=== PATIENT | male | born 1950 | race Caucasian/White ===

== ENCOUNTER 2018-03-30 04:52 | Observation (INO) ==
--- NOTE | 2018-03-30 05:28 | Emergency Department Note ---
Disposition Clinical Impression: Weakness of right side of body Disposition: Admitted As Inpatient Condition: Good Time of Disposition: 06:05 Neuro HPI - General Chief Complaint: ED Neuro Symptoms/Deficit Stated Complaint: numbness to left side of the face at 0100 Time Seen by Provider: 03/30/18 05:09 Source: patient, family Limitations: no limitations Nursing Notes Reviewed: Yes Vital Signs Reviewed: Yes - History of Present Illness HPI Narrative: 67-year-old male history of hypertension, atrial fibrillation on Xarelto, diabetes presents an emergency department for right sided weakness left facial numbness. States around 4 hours prior to arrival at 0100 while at work patient experience a weird feeling in his left side of the face that started around the front and radiated up to the back of his scalp. He also had associated weakness in his right arm and right leg. No slurred speech. States he was unable to move however he was standing. His coworkers asked it feels are right in noted that he will had an abnormal gait. He checked his blood pressure stated it was elevated systolic 190. The symptoms lasted for roughly an hour. Currently his symptoms have completely resolved. He denies prior history of similar symptoms. Denies any injury or trauma. He denies any headache, chest pain or shortness of breath. He denies any G.I. bleed symptoms. Denies any recent travel, diarrhea or recent tick exposure. His glucose was 154 on arrival here. Onset of Symptoms Date: 03/30/18 Onset of Symptoms Time: 01:00 Symptom Onset Unknown: No - Related Data Home Medications: Home Medications Medication Instructions Recorded Confirmed Amlodipine Besylate 10 mg PO DAILY 03/30/18 03/30/18 Canagliflozin [Invokana] 300 mg PO DAILY 03/30/18 03/30/18 Clotrimazole 1% CRM [Lotrimin 1%] 1 appl TP BID 03/30/18 03/30/18 Finasteride [Proscar] 5 mg PO DAILY 03/30/18 03/30/18 Fluorouracil [Carac] 30 gm TP BID 03/30/18 03/30/18 Glimepiride [Amaryl] 4 mg PO DAILY 03/30/18 03/30/18 Losartan Potassium [Cozaar] 100 mg PO DAILY 03/30/18 03/30/18 Meclizine HCl [Verticalm] 25 mg PO DAILY 03/30/18 03/30/18 Metformin HCl [Glucophage] 1,000 mg PO BID 03/30/18 03/30/18 Metoprolol Tartrate [Lopressor] 50 mg PO BID 03/30/18 03/30/18 Mupirocin [Bactroban Oint] 1 appl TP TID 03/30/18 03/30/18 Niacin (24 HR) [Niaspan] 500 mg PO HS 03/30/18 03/30/18 Potassium Chloride [Klor-Con 10] 10 meq PO BID 03/30/18 03/30/18 Rivaroxaban [Xarelto] 20 mg PO DAILY 03/30/18 03/30/18 Allergies/Adverse Reactions: Allergies Allergy/AdvReac Type Severity Reaction Status Date / Time Tzerctw-Jls-Bah Reductase Allergy Cough Verified 04/21/15 10:41 Inhibitor [Statins] All systems ED: reviewed and negative except as stated. Review of Systems: As Per HPI Constitutional: Reports: weakness. Denies: fever, chills Cardiovascular: Denies: chest pain Respiratory: Denies: dyspnea Musculoskeletal: Denies: back pain, neck pain Neurological: Reports: weakness, numbness, abnormal gait. Denies: headache, paresthesias, confusion Past Medical History - Past Medical History Attestation: Yes The following information was validated with the patient. Source: patient Medical history: Reports: atrial fibrillation, diabetes, hyperlipidemia, hypertension Surgical history: Reports: other Psychiatric history: Reports: no psych history - Social History Smoking Status: Former smoker Alcohol use: Reports: none Drug use: Reports: none Physical Exam - General Limitations: no limitations General appearance: alert, in no apparent distress - Head Head exam: atraumatic, normocephalic, normal inspection - Eye Eye exam: Present: normal appearance, PERRL, EOMI - ENT ENT exam: normal exam, normal oropharynx, mucous membranes moist - Neck Neck exam: Present: normal inspection, full ROM, trachea midline - Chest Chest inspection: Present: normal inspection, symmetric chest wall rise - Respiratory Respiratory exam: Present: normal lung sounds bilaterally - Cardiovascular Cardiovascular exam: Present: regular rate, normal rhythm, normal heart sounds - Abdominal Exam Abdominal exam: Present: soft, Non-Tender. Absent: tenderness, distention, guarding, rebound, rigidity - Extremities Exam Extremities exam: Present: normal inspection, full ROM, normal capillary refill. Absent: tenderness, pedal edema, calf tenderness - Neurological Exam Neurological exam: Present: alert, oriented X3, CN II-XII intact, normal gait - Expanded Neurological Exam Patient oriented to: Present: person, place, time Speech: Present: fluid speech Cranial nerves: EOM function (II, III, IV, ): Normal, facial sensation (V): Normal, facial palsy (VII): Normal, gag reflex (IX): Normal, spinal accessory function (XI): Normal, tongue deviation (XII): Normal Cerebellar function: finger to nose: Normal, heel to quintana: Normal Cerebellar function: normal gait Motor strength - LUE: 5/5 Motor strength - RUE: 5/5 Motor strength - LLE: 5/5 Motor strength - RLE: 5/5 Upper motor neuron exam: dwaine neglect: Absent bilaterally, pronator drift: Absent bilaterally Sensory exam upper extremity: light touch: Normal Sensory exam lower extremity: light touch: Normal Coma Scale Eye Opening: Spontaneous Coma Scale Motor Response: Obeys Commands Coma Scale Verbal Response: Oriented Coma Scale Total: 15 - Psychiatric Psychiatric exam: Present: normal affect, normal mood - Skin Skin exam: Present: warm, dry, intact, normal color. Absent: rash, cyanosis, diaphoresis Course Course Narrative: Patient presents with resolved right-sided weakness of upper and lower extremity. His current NIH score of 0. He takes Xarelto for his atrial fibrillation. He is currently not an appropriate TPA candidate. Given his risk factors he would be appropriate for further evaluation for possible CVA TIA including a MRI is a do not suspect this is hemorrhagic stroke given lack of headache and resolved symptoms. - Consultations Consultation #1: Spoke with on-call hospitalist castro Hugo to admit for right sided weakness resolved and CVA/TIA workup. MRI is pending and should not delay admission. Requests for the MRI to be performed in the ED prior to admission to the floor. Time: 06:05 Vital Signs Temperature 98.4 F 03/30/18 05:00 Pulse Rate 81 03/30/18 05:00 Respiratory Rate 16 03/30/18 05:00 Blood Pressure 163/110 03/30/18 05:00 O2 Sat by Pulse Oximetry 98 03/30/18 05:00 Temperature 98.4 F 03/30/18 05:00 Pulse Rate 68 03/30/18 06:44 Respiratory Rate 16 03/30/18 06:44 Blood Pressure 164/119 03/30/18 06:44 O2 Sat by Pulse Oximetry 97 03/30/18 06:44 Oxygen Delivery Oxygen Delivery Room Air Neuro Symptoms/Deficit - MDM Narrative Medical decision making narrative: Patient was discussed with my attending physician who agrees with ED management and final disposition. They independently evaluated the patient. Please refer to their attestation to this encounter for additional information. This note was generated by [employer] voice recognition software and as a result grammatical or spelling errors may occur using this program. - Medical Records Medical records reviewed: Yes I reviewed the patient's medical records. - Lab Data Result diagrams: 03/30/18 05:35 03/30/18 05:35 Lab Results 03/30/18 03/30/18 03/30/18 Range/Units 04:59 05:35 05:35 WBC 6.2 (4.3-11.1) K/mcL RBC 4.79 (4.19-5.50) M/mcL Hgb 14.4 (12.9-16.9) g/dL Hct 42.1 (37.5-50.1) % MCV 87.9 (83.0-100.0) fL MCH 30.1 (28.0-33.3) pg MCHC 34.2 (31.6-35.5) g/dL RDW 13.2 (11.5-14.5) % Plt Count 229 (140-400) K/mcL MPV 9.9 (9.4-12.4) fL Immature Gran % 0.3 (0-4) % Seg Neutrophils % 58.2 % Lymphocytes % 28.7 % Monocytes % 8.9 % Eosinophils % 2.9 % Basophils % 1.0 % Neutrophils # 3.6 (1.6-8.9) K/mcL Lymphocytes # 1.8 (0.6-4.6) K/mcL Monocytes # 0.6 (0.0-1.3) K/mcL Eosinophils # 0.2 (0.0-0.6) K/mcL Basophils # 0.1 (0.0-0.2) K/mcL PT 13.0 H (9.4-12.1) Seconds INR 1.2 APTT 32.4 (26.0-36.0) Seconds Sodium (136-145) mEq/L Potassium (3.5-5.1) mEq/L Chloride (98-107) mEq/L Carbon Dioxide (23-29) mEq/L BUN (8-23) mg/dL Creatinine (0.70-1.30) mg/dL Est GFR ( Amer) (> 60) Est GFR (Non-Af Amer) (> 60) BUN/Creatinine Ratio (6-26) Glucose (70-105) mg/dL POC Glucose 154 H (70-99) mg/dL Calculated Osmolality (280-300) Calcium (8.6-10.3) mg/dL Troponin I (< 0.04) ng/mL 03/30/18 Range/Units 05:35 WBC (4.3-11.1) K/mcL RBC (4.19-5.50) M/mcL Hgb (12.9-16.9) g/dL Hct (37.5-50.1) % MCV (83.0-100.0) fL MCH (28.0-33.3) pg MCHC (31.6-35.5) g/dL RDW (11.5-14.5) % Plt Count (140-400) K/mcL MPV (9.4-12.4) fL Immature Gran % (0-4) % Seg Neutrophils % % Lymphocytes % % Monocytes % % Eosinophils % % Basophils % % Neutrophils # (1.6-8.9) K/mcL Lymphocytes # (0.6-4.6) K/mcL Monocytes # (0.0-1.3) K/mcL Eosinophils # (0.0-0.6) K/mcL Basophils # (0.0-0.2) K/mcL PT (9.4-12.1) Seconds INR APTT (26.0-36.0) Seconds Sodium 140 (136-145) mEq/L Potassium 3.4 L (3.5-5.1) mEq/L Chloride 101 (98-107) mEq/L Carbon Dioxide 23 (23-29) mEq/L BUN 20 (8-23) mg/dL Creatinine 0.94 (0.70-1.30) mg/dL Est GFR ( Amer) > 60 (> 60) Est GFR (Non-Af Amer) > 60 (> 60) BUN/Creatinine Ratio 21 (6-26) Glucose 153 H (70-105) mg/dL POC Glucose (70-99) mg/dL Calculated Osmolality 296 (280-300) Calcium 9.6 (8.6-10.3) mg/dL Troponin I < 0.03 (< 0.04) ng/mL - EKG Data EKG attestation: Yes I reviewed and interpreted this EKG. EKG results narrative: EKG performed 06 atrial fibrillation 58 beats per minute, normal axis, good R wave progression, no ST elevation or depression, QT QTC slightly prolonged 441 438. Compared to prior EKG performed to 62,001 showed sinus bradycardia NIH Stroke Scale - Level of Consciousness LOC: Alert - LOC Questions LOC Questions: Answers both correctly - LOC Commands LOC Commands: Performs both correctly - Best Gaze Best Gaze: Normal - Visual Visual: No visual loss - Facial Palsy Facial Palsy: Normal - Motor Arms Motor Arm-Left: No drift for 10 seconds Motor Arm-Right: No drift for 10 seconds - Motor Legs Motor Leg-Left: No drift for 5 seconds Motor Leg-Right: No drift for 5 seconds - Limb Ataxia Limb Ataxia: Absent of affected limb too weak to perform exam - Sensory Sensory: Normal - Best Language Best Language: No aphasia - Dysarthria Dysarthria: Normal - Extinction and Inattention Extinction and Inattention: Normal - NIHSS Total Score NIHSS Total Score: 0 TPA Checklist - Eligibilty for IV tPA 1. LKW equal to or less than 4.5 hours be before treatment: Yes 2. Clinical diagnosis of ischemic stroke causing deficit: Yes 3. Age 18 years or older: Yes - Contraindications 15. Current or recent use of anticoagualants (see protocol): Yes - LKW: 3-4.5 hrs Add. Warnings/Precautions Patient/family understanding: The patient/family members have been counseled and understood the risk, benefit , and alternatives of treatment.
[2018-03-30 05:49] LABS: Basophils # 0.1 K/mcL (0.0-0.2); Eosinophils # 0.2 K/mcL (0.0-0.6); Eosinophils % 2.9 %; Hematocrit 42.1 % (37.5-50.1); Hemoglobin 14.4 g/dL (12.9-16.9); Immature Granulocytes % 0.3 % (0-4); Lymphocytes # 1.8 K/mcL (0.6-4.6); Lymphocytes % 28.7 %; Mean Corpuscular HGB Conc 34.2 g/dL (31.6-35.5); Mean Corpuscular Hemoglobin 30.1 pg (28.0-33.3); Mean Corpuscular Volume 87.9 fL (83.0-100.0); Mean Platelet Volume 9.9 fL (9.4-12.4); Monocytes # 0.6 K/mcL (0.0-1.3); Monocytes % 8.9 %; Neutrophils # 3.6 K/mcL (1.6-8.9); Platelet Count 229 K/mcL (140-400); Red Blood Count 4.79 M/mcL (4.19-5.50); Red Cell Distribution Width 13.2 % (11.5-14.5); Segmented Neutrophils % 58.2 %
[2018-03-30 05:56] LABS: INR 1.2
[2018-03-30 05:58] LABS: Activated Partial Thrombo Time 32.4 Seconds (26.0-36.0)
[2018-03-30 06:19] LABS: BUN/Creatinine Ratio 21 (6-26); Blood Urea Nitrogen 20 mg/dL (8-23); Calcium 9.6 mg/dL (8.6-10.3); Carbon Dioxide 23 mEq/L (23-29); Chloride 101 mEq/L (98-107); Glucose 153 mg/dL (70-105); Osmolality,Calculated 296 (280-300); Potassium 3.4 mEq/L (3.5-5.1); Sodium 140 mEq/L (136-145); eGFR For Non-African Americans > 60 (> 60)
[2018-03-30 06:20] LABS: Troponin I < 0.03 ng/mL (< 0.04)
[2018-03-30] MEDS ORDERED: Naloxone 0.4 MG/ML INJ IVP PRN (08:31)
--- NOTE | 2018-03-30 08:37 | Internal Med History&Physical ---
Date of Encounter: 03/30/18 Time of Encounter: 09:00 Internal Medicine - H&P: HPI Chief complaint: Incoordination of Right side of body / Burning sensation on left half of fa Admitted From: Home Plans for Post Hospital Care: Home History of present illness: Mr. Yo is a 67 year old male w PMH of Afib on AC ( Xarelto) . HTN, HLD, Dm who presented w cc of temporary right UE/LE incoordination and left facial burning sensation which started at work yesterday evening and resolved over a period of 2 hours . By the time he was brought to the ER, his symptoms have completely disappeared. He states that he also checked his blood pressure at the time of these symptoms and it was elevated to the 190s systolic. He is on 3 different blood pressure medications and usually his blood pressure runs in the 140s. He has been placed on observation for further evaluation. The patient was in on the floor he does not have any current neurological symptoms whatsoever. He denies any headaches, tingling or numbness in any part of his body, blurring of vision, chest pain, shortness of breath Past Med Surg Social Fam HX - Past Medical History Medical history: atrial fibrillation, diabetes, hyperlipidemia, hypertension Psychiatric history: no psych history - Past Surgical History Surgical History: other Additional surgical history: circumcision - Social History Smoking Status: Former smoker Alcohol use: none Drug use: none - Additional Family History Additional family history: No significant family history of early CVA Internal Medicine - H&P: Meds Amlodipine Besylate 10 mg PO DAILY 03/30/18 [History] Canagliflozin [Invokana] 300 mg PO DAILY 03/30/18 [History] Clotrimazole 1% CRM [Lotrimin 1%] 1 appl TP BID 03/30/18 [History] Finasteride [Proscar] 5 mg PO DAILY 03/30/18 [History] Fluorouracil [Carac] 30 gm TP BID 03/30/18 [History] Glimepiride [Amaryl] 4 mg PO DAILY 03/30/18 [History] Losartan/Hydrochlorothiazide [Losartan-Hctz 100-25 mg Tab] 1 tab PO DAILY [History] Meclizine HCl [Verticalm] 25 mg PO DAILY 03/30/18 [History] Metformin HCl [Glucophage] 1,000 mg PO BID 03/30/18 [History] Metoprolol Tartrate [Lopressor] 50 mg PO BID 03/30/18 [History] Multivitamin [One Daily Multivitamin] 1 tab PO DAILY 03/30/18 [History] Mupirocin [Bactroban Oint] 1 appl TP TID 03/30/18 [History] Niacin (24 HR) [Niaspan] 500 mg PO HS 03/30/18 [History] Potassium Chloride [Klor-Con 10] 10 meq PO BID 03/30/18 [History] Rivaroxaban [Xarelto] 20 mg PO DAILY 03/30/18 [History] 3 Allergy/AdvReac Type Severity Reaction Status Date / Time Yvfjtug-Jwn-Hpo Reductase Allergy Cough Verified 04/21/15 10:41 Inhibitor [Statins] All Systems PM: A 10-system review of systems was performed and is negative for pertinent findings except as documented above in the HPI. - Constitutional Vitals: Temp Pulse Resp BP Pulse Ox 98.4 F 68 18 180/115 97 03/30/18 05:00 03/30/18 06:44 03/30/18 08:30 03/30/18 08:30 03/30/18 06:44 - Head Head exam: Present: atraumatic, normocephalic - Eye Eye exam: Present: PERRL, conjuntiva pink, sclera anicteric Pupils: Present: PERRL - Neck Neck exam general surgery: Present: supple, trachea midline. Absent: lymphadenopathy - Respiratory Respiratory exam: Present: CTAB. Absent: accessory muscle use, rales, rhonchi, wheezes - Cardiovascular Cardiovascular exam: Present: irregular rhythm. Absent: diastolic murmur, distant heart sounds, gallop, JVD, RRR, systolic murmur - GI/Abdominal GI/Abdominal exam: Present: normal bowel sounds, soft, no peritoneal signs. Absent: distended, tenderness - Extremities Exam Extremities exam: Present: warm, radial pulses palpable and symmetrical. Absent : calf tenderness, cyanotic, pedal edema - Neurological Exam Neurological exam: Present: alert, CN II-XII intact, normal gait, reflexes normal, strengths equal and symetr throughout. Absent: motor sensory deficit, no focal deficits Additional comments: No dysdiadochokinesia Finger-nose test normal Internal Med - H&P Results - Labs CBC & Chem 7: 03/30/18 05:35 03/30/18 05:35 - EKG Data -: EKG Interpreted by Myself (Atrial fibrillation rate controlled no ST elevation or depression) - Diagnostic Studies MRI - head Status: image reviewed by me (No acute strokes identified) - VTE Reasons for not Prescribing Prophylaxis: Not indicated-Anticoagulated or INR therapeutic - Assessment and plan (1) TIA (transient ischemic attack) Current Visit: Yes Status: Acute Assessment and plan: Symptoms suggestive of a TIA which is completely resolved at this point. Place on telemetry monitoring and frequent neuro checks. Patient is already anticoagulated will consider adding aspirin. Consult neurology. Check 2-D echo check carotid duplex Patient does has hyperlipidemia, hypertension as well as diabetes which are all risk factors for stroke but is already anticoagulated. Further input after Neurology evaluation Patient has an allergy to statins and is currently taking niacin which I will continue for hyperlipidemia (2) Diabetes mellitus type 2 with complications Current Visit: Yes Status: Acute Assessment and plan: Patient usually takes oral hypoglycemics at home. I will hold off all oral hypoglycemics. 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 Qualified Code(s): E11.8 - Type 2 diabetes mellitus with unspecified complications (3) Chronic a-fib Current Visit: Yes Status: Chronic Assessment and plan: Chronic atrial fibrillation, rate controlled, continue anticoagulation with xarelto Continue beta lesly (4) Essential (primary) hypertension Current Visit: Yes Status: Acute Assessment and plan: Continue beta lesly, losartan, hydrochlorothiazide and amlodipine Blood pressure is running a little bit high in the ER-consider escalating the dose of beta lesly providing heart rate allows (5) HLD (hyperlipidemia) Current Visit: Yes Status: Acute Assessment and plan: Continue niacin Qualifiers: Hyperlipidemia type: mixed hyperlipidemia Qualified Code(s): E78.2 - Mixed hyperlipidemia - Time Spent With Patient Total time spent is greater than 50% in coordination of care (as documented) at patient's floor/unit and/or counseling patient: Greater than 35 minutes
[2018-03-30] MEDS ORDERED: NON-FORMULARY MEDICATION 1 EACH EACH (Rivaroxaban [Xarelto] 20 MG) PO SCH (09:00)
[2018-03-30] MEDS: amLODIPine 5 MG TABLET PO SCH (10:02)
[2018-03-30] MEDS: Finasteride 5 MG TABLET PO SCH (10:02)
[2018-03-30] MEDS ORDERED: *HR* Dextrose 50 % in Water (Syg) 50 ML SYRINGE IVP PRN (10:04)
[2018-03-30] MEDS ORDERED: D5% in Water 1,000 ML IVC PRN (10:04)
[2018-03-30] MEDS ORDERED: Dextrose Gel 15 GM/37.5 ML TUBE PO PRN ×2 (10:04)
[2018-03-30] MEDS: Losartan/HCTZ 50-12.5 TABLET PO SCH (10:21)
--- NOTE | 2018-03-30 10:34 | Neurology - Consult Note ---
Date of Encounter: 03/30/18 Time of Encounter: 10:00 Assessment and Plan (1) TIA (transient ischemic attack) Current Visit: Yes Status: Acute Patient experienced left scalp paresthesias and burning as well as right upper and lower extremity weakness and impaired coordination in the setting of Hypertension measured by patient at >190/100. MRI finds chronic white matter ischemic changes with no acute abnormality or stroke identified. Examination today does not find any focal deficit. Echocardiogram and carotid doppler studies are pending. The constellation of symptoms do not localize to ischemia of any one neurologic area. This is more consistent with vasospatic ischemia as result of his hypertension. At this time I recommend that patient continue on Xarelto alone without additional antiplatelet therapy. After echocardiogram and carotid studies no further imaging is necessary from neurology stand point. Recommend blood pressure management by primary team as well as close outpatient blood pressure follow up and treatment. Patient is on several antihypertensives already, treatment resistant hypertension in the setting of obesity may indicate sleep apnea, also recommend consideration for the need of a sleep study for obstructive sleep apnea. History of Present Illness HPI: Mr. Yo is a 67 year old male with a history of hypertension, hyperlipidemia diabetes, and atrial fibrillation treated with xarelto. Patient denies previous occurrence of TIA, CVA, or similar symptoms, he does not take aspirin regularly. He was at work last night developed a sudden onset left face and head paresthesias, described as burning with areas of numbness. He also developed right upper and lower extremity discoordination and weakness. He believes the lack of coordination was more pronounced than the weakness. He was able to ambulate as well as climb stairs and write, however these tasks required increased concentration and effort. He did require some assistance to keep balance when walking at work. Denies slurred speech, changes in vision, and dizziness. He checked his blood pressure at work with a reading of 190/100 , the patient's current blood pressure is 175/101, he notes his systolic blood pressures usually in the 140s. Symptoms lasted approximately 2 hours and were resolved prior to emergency department arrival. Patient does note ongoing paresthesias of his left scalp. He denies difficulty swallowing and is able to ambulate well throughout his room without assistance. Head MRI did not reveal acute abnormality or stroke. Echocardiogram as well as carotid Doppler studies are ordered and pending. Past Med Surg Social Fam HX - Past Medical History Medical history: atrial fibrillation, diabetes, hyperlipidemia, hypertension Psychiatric history: no psych history - Past Surgical History Surgical History: other Additional surgical history: circumcision - Social History Smoking Status: Former smoker Alcohol use: none Drug use: none Medications and Allergies Amlodipine Besylate 10 mg PO DAILY 03/30/18 [History] Canagliflozin [Invokana] 300 mg PO DAILY 03/30/18 [History] Clotrimazole 1% CRM [Lotrimin 1%] 1 appl TP BID 03/30/18 [History] Finasteride [Proscar] 5 mg PO DAILY 03/30/18 [History] Fluorouracil [Carac] 30 gm TP BID 03/30/18 [History] Glimepiride [Amaryl] 4 mg PO DAILY 03/30/18 [History] Losartan/Hydrochlorothiazide [Losartan-Hctz 100-25 mg Tab] 1 tab PO DAILY [History] Meclizine HCl [Verticalm] 25 mg PO DAILY 03/30/18 [History] Metformin HCl [Glucophage] 1,000 mg PO BID 03/30/18 [History] Metoprolol Tartrate [Lopressor] 50 mg PO BID 03/30/18 [History] Multivitamin [One Daily Multivitamin] 1 tab PO DAILY 03/30/18 [History] Mupirocin [Bactroban Oint] 1 appl TP TID 03/30/18 [History] Niacin (24 HR) [Niaspan] 500 mg PO HS 03/30/18 [History] Potassium Chloride [Klor-Con 10] 10 meq PO BID 03/30/18 [History] Rivaroxaban [Xarelto] 20 mg PO DAILY 03/30/18 [History] 3 Allergy/AdvReac Type Severity Reaction Status Date / Time Wwxnkgt-Ucm-Wur Reductase Allergy Cough Verified 04/21/15 10:41 Inhibitor [Statins] All Systems: The remainder of the systems were reviewed and are negative Review of Systems: Paresthesia of the left scalp, review of systems is otherwise negative Physical Examination - Vital Signs Vital Signs: Initial Vital Signs Temp Pulse Resp BP Pulse Ox 98.4 F 81 16 163/110 98 03/30/18 05:00 03/30/18 05:00 03/30/18 05:00 03/30/18 05:00 03/30/18 05:00 - Constitutional General appearance: comfortable - Neurologic Sensorimotor examination: intact Detailed motor examination: grossly full strength in all extremities Motor examination - right side: 01/07: deltoids, biceps, triceps, wrist flexion, wrist extension, insurance service representative, hip flexors, tibialis Anterior, quadriceps, toe extension (EHL), plantarflexion Motor examination - left side: 01/07: deltoids, biceps, triceps, wrist flexion, wrist extension, hip flexors, insurance service representative, quadriceps, tibialis Anterior, toe extension (EHL), plantarflexion Detailed sensory examination: intact, light touch, pain Reflex and gait examination: other (plantar reflex down going. no gait abnormality) Reflexes: Biceps: 2+, Triceps: 1+, Brachioradialis: 2+, Patella: 2+, Achilles: 2 + Mental Status Examination: awake, alert, oriented to person, oriented to place, oriented to time, follows commands appropriately, answers questions appropriately, no agnosia, no aphasia, no aproxia Cranial nerve examination: PERRL, EOMI, visual torres intact, sensory to face intact, mastication intact, no facial asymmetry is present, no dysarthria, hearing is intact symmetrically, soft palate elevates bilaterally upon phonation , flexes SCM and trapezius muscles symmetrically with full power, tongue protrudes midline, no atrophy or facial fasiculations present Cerebellar examination: no dysmetria, performs finger to nose and heel to quintana symmetrically without ataxia (Without evidence of ataxia or dysmetria.), no difficulty with rapid alternating movements Results - Laboratory Findings CBC and BMP: 03/30/18 05:35 03/30/18 05:35 Abnormal lab findings: Abnormal lab results PT 13.0 Seconds (9.4-12.1) H 03/30/18 05:35 Potassium 3.4 mEq/L (3.5-5.1) L 03/30/18 05:35 Glucose 153 mg/dL (70-105) H 03/30/18 05:35 POC Glucose 154 mg/dL (70-99) H 03/30/18 04:59 Consult Discharge Plan - Plan Referrals: Constance Acosta, CHEMICAL RESEARCH ENGINEER [Primary Care Provider] -
[2018-03-30] MEDS: Insulin LISPRO 300 UNITS/3 ML VIAL SQ SCH ×2 (11:58→17:26)
[2018-03-30] MEDS ORDERED: Perflutren Lipid Microsphere 1.3 ML in 0.9 % Sodium Chloride 8.7 ML IVP ONE (13:34)
[2018-03-30] MEDS ORDERED: *HR* Rivaroxaban 10 MG TABLET PO SCH (17:00)
--- NOTE | 2018-03-30 18:18 | Electrocardiograph Report ---
[address] [address] Test Date: 2018-03-30 Pat Name: Kervin Yo Department: 104 Room: 2N4 Gender: M Yarn Examiner: JACOB : 1950 Requested By: Tavo Moya Order Number: [id number] Reading MD: Mumtaz Steinberg Measurements Intervals [place] Rate: 58 P: CA: 0 QRS: 75 QRSD: 110 T: 16 QT: 441 QTc: 438 Interpretive Statements ATRIAL FIBRILLATION WITH SLOW VENTRICULAR RESPONSE Electronically Signed On 03-30-2018 18:17:07 EDT by Mumtaz Steinberg
[2018-03-30] MEDS ORDERED: Niacin (24 HR) 500 MG TAB.ER.24H PO SCH (21:00)
[2018-03-31 04:36] LABS: Basophils # 0.1 K/mcL (0.0-0.2); Basophils % 0.8 %; Eosinophils # 0.2 K/mcL (0.0-0.6); Hematocrit 43.4 % (37.5-50.1); Immature Granulocytes % 0.3 % (0-4); Lymphocytes # 1.5 K/mcL (0.6-4.6); Lymphocytes % 23.9 %; Mean Corpuscular HGB Conc 34.6 g/dL (31.6-35.5); Mean Corpuscular Hemoglobin 30.3 pg (28.0-33.3); Mean Corpuscular Volume 87.7 fL (83.0-100.0); Mean Platelet Volume 9.9 fL (9.4-12.4); Monocytes # 0.7 K/mcL (0.0-1.3); Monocytes % 11.6 %; Neutrophils # 3.8 K/mcL (1.6-8.9); Platelet Count 217 K/mcL (140-400); Red Blood Count 4.95 M/mcL (4.19-5.50); Red Cell Distribution Width 13.1 % (11.5-14.5); Segmented Neutrophils % 60.4 %
[2018-03-31 04:45] LABS: INR 1.5; Prothrombin Time 16.9 Seconds (9.4-12.1)
[2018-03-31 04:59] LABS: Alanine Aminotransferase 18 Units/L (7-52); Albumin/Globulin Ratio 1.3 (1.1-2.2); Alkaline Phosphatase 68 Units/L (34-104); Aspartate Amino Transferase 15 Units/L (13-39); BUN/Creatinine Ratio 18 (6-26); Bilirubin,Total 0.9 mg/dL (0.3-1.0); Blood Urea Nitrogen 19 mg/dL (8-23); Calcium 9.3 mg/dL (8.6-10.3); Carbon Dioxide 29 mEq/L (23-29); Chloride 100 mEq/L (98-107); Chol/HDL Ratio 5.4 (0-4.9); Cholesterol 200 mg/dL (< 200); Globulin 3.1 g/dL (2.4-3.5); Glucose 157 mg/dL (70-105); HDL Cholesterol 37 mg/dL (40-59); LDL Cholesterol,Calculated 144 mg/dL (0-99); Osmolality,Calculated 290 (280-300); Potassium 3.7 mEq/L (3.5-5.1); Sodium 137 mEq/L (136-145); Total Protein 7.1 g/dL (6.4-8.9); Triglycerides 95 mg/dL (< 150); Troponin I < 0.03 ng/mL (< 0.04); eGFR For Non-African Americans > 60 (> 60)
[2018-03-31] MEDS: Finasteride 5 MG TABLET PO SCH (09:02)
[2018-03-31] MEDS: amLODIPine 5 MG TABLET PO SCH (09:02)
[2018-03-31] MEDS: Losartan/HCTZ 50-12.5 TABLET PO SCH (09:02)
[2018-03-31] MEDS: Insulin LISPRO 300 UNITS/3 ML VIAL SQ SCH ×2 (09:02→11:53)
[2018-03-31 11:41] VITALS: BP 138/93
--- NOTE | 2018-03-31 12:56 | Discharge Summary ---
<Compa Merchant Janet - Last Filed: 03/31/18 16:29> - NOTES TO OUTPATIENT PROVIDER Notes to Outpatient Provider: Patient was admitted and evealuated for stroke like symptoms. Head CT, echocardiogram, and carotid US negative. Suspect TIA or unspecfied neurological symptoms. Neurology consult recommended no further intervention other than sleep study. We will discharge with home meds. Date of Encounter: 03/31/18 Time of Encounter: 12:52 - Discharge Diagnosis (1) TIA (transient ischemic attack) Priority: Primary Status: Suspected Assessment and Plan: Patient symptoms resolved, neurological and cardiovascular work up complete. Patient is already on Xarelto and Niacin, will continue those medications at discharge. Brain MRI, echocardiogram, and carotid duplex showed no acute process. Medically stable for discharge. (2) Diabetes mellitus type 2 with complications Priority: Secondary Status: Chronic Assessment and Plan: Patient glucose stable during during hospitalization, will discharge on home meds. Qualifiers: Diabetes mellitus residential insulin use: without residential use Qualified Code(s): E11.8 - Type 2 diabetes mellitus with unspecified complications (3) Chronic a-fib Priority: Secondary Status: Chronic Assessment and Plan: Will discharge on home meds (4) Essential (primary) hypertension Priority: Secondary Status: Chronic Assessment and Plan: Will discharge on home meds (5) HLD (hyperlipidemia) Priority: Secondary Status: Chronic Assessment and Plan: Will continue home meds at discharge Qualifiers: Hyperlipidemia type: mixed hyperlipidemia Qualified Code(s): E78.2 - Mixed hyperlipidemia Hospital course: Mr. Yo is a 67 year old male w PMH of Afib on AC ( Xarelto) . HTN, HLD, Dm who presented w cc of temporary right UE/LE incoordination and left facial burning sensation which started at work. He also checked his blood pressure which was in the 190s systolic. By the time he arrived in the ED all of his symptoms had subsided. MRI brain, echocardiogram, carotid ultrasounds were all non-contributory. Patient was already anticoagulated and taking niacin due to statin allergy. Admitted to telemetry. Neurology recommended no intervention other than sleep study. Diagnosis of TIA was made. Patient was medically stabilized and discharged with home medications, which include Xarelto for anticoagulation and Niacin for lipids. Discharge discussed with: patient - Time Spent with Patient Total time spent providing and/or coordinating discharge services: - Discharge Medications Home Medications: Amlodipine Besylate 10 mg PO DAILY 03/30/18 [History] Canagliflozin [Invokana] 300 mg PO DAILY 03/30/18 [History] Clotrimazole 1% CRM [Lotrimin 1%] 1 appl TP BID 03/30/18 [History] Finasteride [Proscar] 5 mg PO DAILY 03/30/18 [History] Fluorouracil [Carac] 30 gm TP BID 03/30/18 [History] Glimepiride [Amaryl] 4 mg PO DAILY 03/30/18 [History] Losartan/Hydrochlorothiazide [Losartan-Hctz 100-25 mg Tab] 1 tab PO DAILY [History] Meclizine HCl [Verticalm] 25 mg PO DAILY 03/30/18 [History] Metformin HCl [Glucophage] 1,000 mg PO BID 03/30/18 [History] Metoprolol Tartrate [Lopressor] 50 mg PO BID 03/30/18 [History] Multivitamin [One Daily Multivitamin] 1 tab PO DAILY 03/30/18 [History] Mupirocin [Bactroban Oint] 1 appl TP TID 03/30/18 [History] Niacin (24 HR) [Niaspan] 500 mg PO HS 03/30/18 [History] Potassium Chloride [Klor-Con 10] 10 meq PO BID 03/30/18 [History] Rivaroxaban [Xarelto] 20 mg PO DAILY 03/30/18 [History] Allergies/Adverse Reactions: 3 Allergy/AdvReac Type Severity Reaction Status Date / Time [id number] Reductase Allergy Cough Verified 04/21/15 10:41 Inhibitor [Statins] Date of admission: 03/30/18 06:26 Primary care physician: Constance Acosta CNP Consults: 03/30/18 08:25 Consult to Neurology [CONS] Routine Consulting Provider: [facility] Reason for Consult: TIA Time Notified: 08:28 Call Completed: Yes Discharging clinician: Compa Merchant Anticipated date of discharge: 03/31/18 - Constitutional Vitals: Temp Pulse Resp BP Pulse Ox 97.2 F L 61 16 138/93 96 03/31/18 11:36 03/31/18 11:36 03/31/18 07:16 03/31/18 11:36 03/31/18 07:16 Exam: Patient in no acute distress Alert and Oriented x 3 Heart in regular rate and irregular rhythm, no murmur or gallop Lungs clear to auscultation without wheeze, rhonchi, or diminished torres Abdomen soft and non tender Legs non edematous, pulses palpable Skin warm and dry - Patient Status Disposition: Home, Self-Care Condition: Good Functional capacity at discharge: independent ambulation Overall status at discharge: patient is back to baseline - Discharge Instructions Instructions: Hypertensive Crisis (DC) Follow Up With: Constance Acosta CNP [Primary Care Provider] - 04/06/18 1:00 pm (discharge follow up appointment) - Diet and Activity Activity: resume usual activities as tolerated Diet: diabetic diet, low fat, low cholesterol, low salt diet - VTE Reasons for not Prescribing Prophylaxis: Not indicated-Anticoagulated or INR therapeutic <Ced Christie - Last Filed: 03/31/18 17:30> Date of Encounter: 03/31/18 - Discharge Diagnosis (1) TIA (transient ischemic attack) Status: Suspected (2) Diabetes mellitus type 2 with complications Status: Chronic Qualifiers: Diabetes mellitus remote computer terminal operator insulin use: without remote computer terminal operator use Qualified Code(s): E11.8 - Type 2 diabetes mellitus with unspecified complications (3) Chronic a-fib Status: Chronic (4) Essential (primary) hypertension Status: Chronic (5) HLD (hyperlipidemia) Status: Chronic Qualifiers: Hyperlipidemia type: mixed hyperlipidemia Qualified Code(s): E78.2 - Mixed hyperlipidemia Hospital course: Mr. Yo is a 67 year old male - Time Spent with Patient Total time spent providing and/or coordinating discharge services: Date of admission: 03/30/18 06:26 Primary care physician: Constance Acosta CNP Consults: 03/30/18 08:25 Consult to Neurology [CONS] Routine Consulting Provider: [facility] Reason for Consult: TIA Time Notified: 08:28 Call Completed: Yes - Constitutional Vitals: Temp Pulse Resp BP Pulse Ox 97.2 F L 61 16 138/93 96 03/31/18 11:36 03/31/18 11:36 03/31/18 07:16 03/31/18 11:36 03/31/18 07:16 - Attending Attestation Patient was seen and examined. I agree with the discharge summary as dictated above by the resident physician. Discharge plans and recommendations were made under my direct supervision.
--- NOTE | 2018-04-19 07:52 | Emergency Department Note ---
Disposition Clinical Impression: Weakness of right side of body Disposition: Admitted As Inpatient Condition: Good General Adult HPI - General Chief complaint: ED Neuro Symptoms/Deficit Stated complaint: numbness to left side of the face at 0100 Time Seen by Provider: 03/30/18 05:09 Source: patient, family Limitations: no limitations - History of Present Illness Pain Scale: 0 - Related Data Home Medications Medication Instructions Recorded Confirmed Amlodipine Besylate 10 mg PO DAILY 03/30/18 03/30/18 Canagliflozin [Invokana] 300 mg PO DAILY 03/30/18 03/30/18 Clotrimazole 1% CRM [Lotrimin 1%] 1 appl TP BID 03/30/18 03/30/18 Finasteride [Proscar] 5 mg PO DAILY 03/30/18 03/30/18 Fluorouracil [Carac] 30 gm TP BID 03/30/18 03/30/18 Glimepiride [Amaryl] 4 mg PO DAILY 03/30/18 03/30/18 Losartan/Hydrochlorothiazide 1 tab PO DAILY 03/30/18 03/30/18 [Losartan-Hctz 100-25 mg Tab] Meclizine HCl [Verticalm] 25 mg PO DAILY 03/30/18 03/30/18 Metformin HCl [Glucophage] 1,000 mg PO BID 03/30/18 03/30/18 Metoprolol Tartrate [Lopressor] 50 mg PO BID 03/30/18 03/30/18 Multivitamin [One Daily 1 tab PO DAILY 03/30/18 03/30/18 Multivitamin] Mupirocin [Bactroban Oint] 1 appl TP TID 03/30/18 03/30/18 Niacin (24 HR) [Niaspan] 500 mg PO HS 03/30/18 03/30/18 Potassium Chloride [Klor-Con 10] 10 meq PO BID 03/30/18 03/30/18 Rivaroxaban [Xarelto] 20 mg PO DAILY 03/30/18 03/30/18 Allergies Allergy/AdvReac Type Severity Reaction Status Date / Time [id number] Reductase Allergy Cough Verified 04/21/15 10:41 Inhibitor [Statins] Constitutional: Reports: weakness. Denies: fever, chills Cardiovascular: Denies: chest pain Respiratory: Denies: dyspnea Musculoskeletal: Denies: back pain, neck pain Neurological: Reports: weakness, numbness, abnormal gait. Denies: headache, paresthesias, confusion Past Medical History - Past Medical History Medical history: Reports: atrial fibrillation, diabetes, hyperlipidemia, hypertension Surgical history: Reports: other Psychiatric history: Reports: no psych history - Social History Smoking Status: Former smoker Alcohol use: Reports: none Drug use: Reports: none Physical Exam - General Limitations: no limitations General appearance: alert, in no apparent distress Course Vital Signs Temperature 98.4 F 03/30/18 05:00 Pulse Rate 81 03/30/18 05:00 Respiratory Rate 16 03/30/18 05:00 Blood Pressure 163/110 03/30/18 05:00 O2 Sat by Pulse Oximetry 98 03/30/18 05:00 Temperature 97.2 F L 03/31/18 11:36 Pulse Rate 61 03/31/18 11:36 Respiratory Rate 16 03/31/18 07:16 Blood Pressure 138/93 03/31/18 11:36 O2 Sat by Pulse Oximetry 96 03/31/18 07:16 Oxygen Delivery Oxygen Delivery Room Air Medical Decision Making - Lab Data Result diagrams: 03/31/18 04:15 03/31/18 04:15 Lab Results 03/30/18 03/30/18 03/30/18 Range/Units 04:59 05:35 05:35 WBC 6.2 (4.3-11.1) K/mcL RBC 4.79 (4.19-5.50) M/mcL Hgb 14.4 (12.9-16.9) g/dL Hct 42.1 (37.5-50.1) % MCV 87.9 (83.0-100.0) fL MCH 30.1 (28.0-33.3) pg MCHC 34.2 (31.6-35.5) g/dL RDW 13.2 (11.5-14.5) % Plt Count 229 (140-400) K/mcL MPV 9.9 (9.4-12.4) fL Immature Gran % 0.3 (0-4) % Seg Neutrophils % 58.2 % Lymphocytes % 28.7 % Monocytes % 8.9 % Eosinophils % 2.9 % Basophils % 1.0 % Neutrophils # 3.6 (1.6-8.9) K/mcL Lymphocytes # 1.8 (0.6-4.6) K/mcL Monocytes # 0.6 (0.0-1.3) K/mcL Eosinophils # 0.2 (0.0-0.6) K/mcL Basophils # 0.1 (0.0-0.2) K/mcL PT 13.0 H (9.4-12.1) Seconds INR 1.2 APTT 32.4 (26.0-36.0) Seconds Sodium (136-145) mEq/L Potassium (3.5-5.1) mEq/L Chloride (98-107) mEq/L Carbon Dioxide (23-29) mEq/L BUN (8-23) mg/dL Creatinine (0.70-1.30) mg/dL Est GFR ( Amer) (> 60) Est GFR (Non-Af Amer) (> 60) BUN/Creatinine Ratio (6-26) Glucose (70-105) mg/dL POC Glucose 154 H (70-99) mg/dL Calculated Osmolality (280-300) Calcium (8.6-10.3) mg/dL Troponin I (< 0.04) ng/mL 03/30/18 Range/Units 05:35 WBC (4.3-11.1) K/mcL RBC (4.19-5.50) M/mcL Hgb (12.9-16.9) g/dL Hct (37.5-50.1) % MCV (83.0-100.0) fL MCH (28.0-33.3) pg MCHC (31.6-35.5) g/dL RDW (11.5-14.5) % Plt Count (140-400) K/mcL MPV (9.4-12.4) fL Immature Gran % (0-4) % Seg Neutrophils % % Lymphocytes % % Monocytes % % Eosinophils % % Basophils % % Neutrophils # (1.6-8.9) K/mcL Lymphocytes # (0.6-4.6) K/mcL Monocytes # (0.0-1.3) K/mcL Eosinophils # (0.0-0.6) K/mcL Basophils # (0.0-0.2) K/mcL PT (9.4-12.1) Seconds INR APTT (26.0-36.0) Seconds Sodium 140 (136-145) mEq/L Potassium 3.4 L (3.5-5.1) mEq/L Chloride 101 (98-107) mEq/L Carbon Dioxide 23 (23-29) mEq/L BUN 20 (8-23) mg/dL Creatinine 0.94 (0.70-1.30) mg/dL Est GFR ( Amer) > 60 (> 60) Est GFR (Non-Af Amer) > 60 (> 60) BUN/Creatinine Ratio 21 (6-26) Glucose 153 H (70-105) mg/dL POC Glucose (70-99) mg/dL Calculated Osmolality 296 (280-300) Calcium 9.6 (8.6-10.3) mg/dL Troponin I < 0.03 (< 0.04) ng/mL Attestation Statement - Attestation Attestation: I examined this patient and my medical decision-making was reviewed with the Resident Physician. I agree with the documented findings, disposition and treatment plan as described except to the extent set forth below. TIA, completely neurologically normal in the ED, NIHSS 0. Admitted for further evaluation.
== END 2018-03-31 14:35 | disposition home or self-care (01) ==
LOC: EMEROO 04:52 → 2NENU 04:52
PROVIDERS: ADMIT Family Medicine; ATTEND Family Medicine